=== PATIENT | female | born 1995 | race Caucasian/White ===

== ENCOUNTER 2018-02-03 21:00 | Emergency (ER) | payer MEDICAID ==
[~2018-02-03] VITALS: Ht 157.5 cm; Wt 76.8 kg
[2018-02-03 21:04] VITALS: BP 158/89
== END 2018-02-03 22:05 | disposition home or self-care (01) ==
LOC: ED 22:00
DX: J06.9 Acute upper respiratory infection, unspecified (principal); F17.210 Nicotine dependence, cigarettes, uncomplicated
CPT/HCPCS: 99283